=== PATIENT | male | born 2000 | race Caucasian/White ===

== ENCOUNTER → 2022-09-22 | Emergency (ER) | payer OTHER ==
[~2022-09-22] VITALS: Ht 170.2 cm; Wt 78.2 kg
[~2022-09-22] MED LIST: AMOX-580 PO; amox tr/potassium clavulanate 875/125mg TAB PO ONE; mupirocin 2% ointment 22GM TP ONE
[2022-09-22 04:18] VITALS: BP 128/76
== END | disposition home or self-care (01) ==
LOC: ER 01:26
DX: S61.354A Open bite of right ring finger with damage to nail, initial encounter (principal); Z79.2 Long term (current) use of antibiotics; W19.XXXA Unspecified fall, initial encounter; Y93.89 Activity, other specified; Y92.89 Other specified places as the place of occurrence of the external cause; Y99.8 Other external cause status
CPT/HCPCS: 99283